=== PATIENT | male | born 1975 | race African-American/Black ===

== ENCOUNTER 2018-09-24 22:38 | Emergency (ER) | payer MEDICAID ==
[2018-09-25] MEDS: traMADol 50 MG TAB PO (00:12)
[2018-09-25] MEDS: CEFTRIAXONE 1 GM INJ IM (00:12)
[2018-09-25] MEDS: LIDOCAINE 1% (MPF) 5 ML VIAL INFIL (00:12)
[2018-09-25] MEDS: ACETAMINOPHEN 500 MG TAB PO (00:12)
[2018-09-25] MEDS: KETOROLAC 60 MG INJ IM (00:14)
== END 2018-09-25 01:59 | disposition home or self-care (01) ==
LOC: FTE 22:38
DX: L03.116 Cellulitis of left lower limb (principal); I83.028 Varicose veins of left lower extremity with ulcer other part of lower leg; L97.829 Non-pressure chronic ulcer of other part of left lower leg with unspecified severity
CPT/HCPCS: 96372; 99284-25